=== PATIENT | female | born 1970 | race African-American/Black ===

== ENCOUNTER 2017-08-02 21:09 | Emergency (ER) | payer SELFPAY | END 2017-08-02 22:05 | disposition left against medical advice (07) | LOC: EDBD → ED 21:09 | DX: R55 Syncope and collapse (principal); Z53.21 Procedure and treatment not carried out due to patient leaving prior to being seen by health care provider | CPT/HCPCS: 93005; 93010 ==

== ENCOUNTER 2018-06-02 15:24 | Emergency (ER) | payer MEDICAID ==
[2018-06-02 15:44] VITALS: BP 122/81
[2018-06-02] MEDS ORDERED: NACL 0.9% 1000 ML 1,000 ML IV ONE (16:36)
[2018-06-02] MEDS ORDERED: CLEOCIN 900 MG/50 mL 900 MG/50 ML BAG IV ONE (16:36)
--- NOTE | 2018-06-02 16:37 | Emergency Department Report ---
- General Chief complaint: Skin/Abscess/Foreign Body Stated complaint: BODY PAIN Time Seen by Provider: 06/02/18 16:36 Source: patient, family Mode of arrival: Ambulatory Limitations: Language Barrier - History of Present Illness Initial comments: This is a 48-year-old female nontoxic, well nourished in appearance, no acute signs of distress presents to the ED with c/o of periumbilical redness, tenderness and drainage 4 days. - Related Data Allergies Allergy/AdvReac Type Severity Reaction Status Date / Time No Known Allergies Allergy Unverified 06/02/18 15:43 Abscess Boil HPI - HPI Chief Complaint: Skin/Abscess/Foreign Body Stated Complaint: BODY PAIN Time Seen by Provider: 06/02/18 16:36 Allergies/Adverse Reactions: Allergies Allergy/AdvReac Type Severity Reaction Status Date / Time No Known Allergies Allergy Unverified 06/02/18 15:43 ED Review of Systems ROS: Stated complaint: BODY PAIN Other details as noted in HPI ED Past Medical Hx - Past Medical History Previous Medical History?: No - Surgical History Past Surgical History?: No - Social History Smoking Status: Never Smoker Substance Use Type: None ED Physical Exam - General Limitations: Language Barrier ED Course Vital Signs 06/02/18 15:43 Temperature 98.1 F Pulse Rate 67 Respiratory 16 Rate Blood Pressure 122/81 O2 Sat by Pulse 97 Oximetry ED Medical Decision Making - Lab Data Result diagrams: 06/02/18 16:42 06/02/18 16:42 Critical care attestation.: If time is entered above; I have spent that time in minutes in the direct care of this critically ill patient, excluding procedure time. ED Disposition Condition: Stable Referrals: JANNETTE CAR MD [Primary Care Provider] - 3-5 Days
[2018-06-02 17:15] LABS: BUN/Creatinine Ratio 22; Blood Urea Nitrogen 11 mg/dL (7-17); Calcium 9.3 mg/dL (8.4-10.2); Hemolysis Index 2
[2018-06-02 17:17] LABS: Basophils % (Auto) 0.6 % (0.0-1.8); Eosinophils # (Auto) 0.2 K/mm3 (0.0-0.4); Eosinophils % (Auto) 4.3 % (0.0-4.3); Hematocrit 40.2 % (30.3-42.9); Lymphocytes # (Auto) 2.6 K/mm3 (1.2-5.4); Lymphocytes % (Auto) 47.8 % (13.4-35.0); Mean Corpuscular HGB Conc 35 % (30-34); Mean Corpuscular Hemoglobin 32 pg (28-32); Mean Corpuscular Volume 92 fl (79-97); Monocytes # (Auto) 0.4 K/mm3 (0.0-0.8); Monocytes % (Auto) 7.7 % (0.0-7.3); Platelet Count 252 K/mm3 (140-440); Red Blood Count 4.37 M/mm3 (3.65-5.03); Red Cell Distribution Width 12.4 % (13.2-15.2)
[2018-06-02 18:23] LABS: HCG Qualitative,Urine Negative (Negative)
--- NOTE | 2018-06-02 19:14 | Cat Scan Report ---
FINAL REPORT EXAM: CT ABDOMEN W CON HISTORY: periumbilical redness with tenderness r/o abscess TECHNIQUE: Standard enhanced CT of the abdomen. Coronal and sagittal reconstruction was also performed. Delayed imaging through the abdomen pelvis was also obtained. Contrast: 100 mL Omnipaque 300 given IV. PRIORS: None. FINDINGS: In the periumbilical region, there is no evidence for focal fluid collection to suggest abscess. Minimal skin thickening suggesting swelling is present at the level of the umbilicus. In the proximal small bowel along midline, there is a 1.7 cm well-defined rounded intraluminal calcified density (coronal image 46, axial image 63, series 2). Findings probably represent in undigested pills such as TUMS Within the abdomen, the liver, spleen, pancreas, gallbladder, adrenal glands, and kidneys are unremarkable. No evidence for retroperitoneal lymphadenopathy is seen. The bowel loops have normal caliber. No soft tissue mass, fluid collection, inflammatory change, or free air is seen within the abdomen. The appendix is normal. Images through the upper abdomen include the lung bases which are expanded and clear. There a moderate pericardial effusion. Bony structures show no focal abnormalities and are intact. IMPRESSION: 1. no acute intra-abdominal process noted. Minimal soft tissue skin thickening in the region of the umbilicus. No well-defined abscess is seen 2. Moderate pericardial effusion
--- NOTE | 2018-06-02 19:44 | Emergency Department Report ---
ED General Adult HPI - General Chief complaint: Skin/Abscess/Foreign Body Stated complaint: BODY PAIN Time Seen by Provider: 06/02/18 16:36 Source: patient, family Mode of arrival: Ambulatory Limitations: Language Barrier - History of Present Illness Initial comments: This is a 48-year-old female nontoxic, well nourished in appearance, no acute signs of distress presents to the ED with c/o of periumbilical redness, tenderness and drainage 4 days. Patient describes drainage as clear with no foul order. Patient denies any nausea, vomiting, chest pain, shortness of breath, fever, chills, nausea, vomiting, headache, stiff neck, numbness or tingling. Patient denies any drug allergies or significant past medical history. Patients son is present for translation during interview and physical exam. -: days(s) (4) Radiation: non-radiation Severity scale (0 -10): 8 Quality: aching Consistency: constant Improves with: none Worsens with: none Associated Symptoms: denies other symptoms. denies: confusion, chest pain, cough, diaphoresis, fever/chills, headaches, loss of appetite, malaise, nausea/ vomiting, rash, seizure, shortness of breath, syncope, weakness Treatments Prior to Arrival: none - Related Data Previous Rx's Medication Instructions Recorded Last Taken Type Acetaminophen/Codeine [Tylenol 1 tab PO Q6H PRN #12 tab 06/02/18 Unknown Rx /Codeine # 3 tab] Clindamycin [Clindamycin CAP] 300 mg PO Q8H #21 cap 06/02/18 Unknown Rx Allergies Allergy/AdvReac Type Severity Reaction Status Date / Time No Known Allergies Allergy Unverified 06/02/18 15:43 ED Review of Systems ROS: Stated complaint: BODY PAIN Other details as noted in HPI Constitutional: denies: chills, fever Eyes: denies: eye pain, eye discharge, vision change ENT: denies: ear pain, throat pain Respiratory: denies: cough, shortness of breath, wheezing Cardiovascular: denies: chest pain, palpitations Endocrine: no symptoms reported Gastrointestinal: denies: abdominal pain, nausea, diarrhea Genitourinary: denies: urgency, dysuria, discharge Musculoskeletal: denies: back pain, joint swelling, arthralgia Skin: denies: rash, lesions Neurological: denies: headache, weakness, paresthesias Psychiatric: denies: anxiety, depression Hematological/Lymphatic: denies: easy bleeding, easy bruising ED Past Medical Hx - Past Medical History Previous Medical History?: No - Surgical History Past Surgical History?: No - Social History Smoking Status: Never Smoker Substance Use Type: None - Medications Home Medications: Home Medications Medication Instructions Recorded Confirmed Last Taken Type Acetaminophen/Codeine [Tylenol 1 tab PO Q6H PRN #12 tab 06/02/18 Unknown Rx /Codeine # 3 tab] Clindamycin [Clindamycin CAP] 300 mg PO Q8H #21 cap 06/02/18 Unknown Rx ED Physical Exam - General Limitations: Language Barrier General appearance: alert, in no apparent distress - Head Head exam: Present: atraumatic, normocephalic - Eye Eye exam: Present: normal appearance Pupils: Present: normal accommodation - ENT ENT exam: Present: normal exam, mucous membranes moist - Neck Neck exam: Present: normal inspection, full ROM. Absent: tenderness, meningismus, lymphadenopathy - Respiratory Respiratory exam: Present: normal lung sounds bilaterally. Absent: respiratory distress, wheezes, rales, rhonchi, stridor, chest wall tenderness, accessory muscle use, decreased breath sounds, prolonged expiratory - Cardiovascular Cardiovascular Exam: Present: regular rate, normal rhythm, normal heart sounds. Absent: bradycardia, tachycardia, irregular rhythm, systolic murmur, diastolic murmur, rubs, gallop - GI/Abdominal GI/Abdominal exam: Present: soft, tenderness, normal bowel sounds, other (circum -periumbilical erythema with no induration or flutance noted. No draiange noted. ). Absent: distended, guarding, rebound, rigid, diminished bowel sounds - Rectal Rectal exam: Present: deferred - Extremities Exam Extremities exam: Present: normal inspection, full ROM, normal capillary refill. Absent: tenderness - Back Exam Back exam: Present: normal inspection, full ROM. Absent: tenderness, CVA tenderness (R), CVA tenderness (L), muscle spasm, paraspinal tenderness, vertebral tenderness, rash noted - Neurological Exam Neurological exam: Present: alert, oriented X3, normal gait - Psychiatric Psychiatric exam: Present: normal affect, normal mood - Skin Skin exam: Present: warm, dry, intact, normal color. Absent: rash ED Course Vital Signs 06/02/18 15:43 Temperature 98.1 F Pulse Rate 67 Respiratory 16 Rate Blood Pressure 122/81 O2 Sat by Pulse 97 Oximetry - Reevaluation(s) Reevaluation #1: 06/02/18 19:46 Patient is speaking in full sentences with no signs of distress noted. - Consultations Consultation #1: 06/02/18 19:46 Patient has been consulted with Megan Ch about patient history, physical exam , and labs,CT abdomen results and agrees to the ED plan of care with CT with contrast of chest and further labs and consult branch library clerk. ED Medical Decision Making - Lab Data Result diagrams: 06/02/18 16:42 06/02/18 16:42 - Medical Decision Making This is a 48-year-old female that presents with periumbilical cellulitis. Patient is stable and was examined by me. Labs obtained and unremarkable. CT of abdomen indicates moderate pericardial effusion. Patient has been discussed with Dr. Salinas and agrees to the ED plan of care. CT of chest obtained with small pericardial effusion with left lower lobe atelectasis. Patient was discussed with branch library clerk Renzo Vilchis and stated patient can be discharged with follow-up for a echocardiogram. Patient received 1 L normal saline as well as clindamycin. I will discharge patient with clindamycin, Tylenol with codeine. Patient was instructed to Do not operate any machinery while taking Tylenol with codeine as this may cause drowsiness. Patient was referred to Follow-up with a primary care/branch library clerk doctor in 2-3 days or if symptoms worsen and continue return to emergency room as soon as possible. At time of discharge, the patient does not seem toxic or ill in appearance. No acute signs of distress noted. Patient agrees to discharge treatment plan of care. No further questions noted by the patient. Critical care attestation.: If time is entered above; I have spent that time in minutes in the direct care of this critically ill patient, excluding procedure time. ED Disposition Clinical Impression: Cellulitis of periumbilical region, Pericardial effusion Disposition: TO HOME OR SELFCARE Is pt being admited?: No Does the pt Need Aspirin: No Condition: Stable Instructions: Cellulitis (ED), Acetaminophen/Codeine (By mouth) Additional Instructions: Follow-up with a primary care/branch library clerk doctor in 2-3 days or if symptoms worsen and continue return to emergency room as soon as possible. Do not operate any machinery while taking Tylenol with codeine as this may cause drowsiness. Prescriptions: Acetaminophen/Codeine [Tylenol /Codeine # 3 tab] 1 tab PO Q6H PRN #12 tab PRN Reason: Pain , Severe (7-10) Clindamycin [Clindamycin CAP] 300 mg PO Q8H #21 cap Referrals: JANNETTE CAR MD [Primary Care Provider] - 3-5 Days JEREMY DAS MD [Referring] - 3-5 Days JS ROD MD [Staff Physician] - 3-5 Days [facility] [Outside] - 3-5 Days [facility] [Outside] - 3-5 Days Forms: Work/School Release Form(ED)
[2018-06-02 20:13] LABS: INR 0.89 (0.87-1.13)
[2018-06-02 20:14] LABS: Partial Thromboplastin Time 34.3 Sec. (24.2-36.6)
[2018-06-02 20:23] LABS: Creatine Kinase MB 1.3 ng/mL (0.0-4.0)
--- NOTE | 2018-06-02 21:36 | Cat Scan Report ---
FINAL REPORT EXAM: CT CHEST W CON HISTORY: pericardial effusion TECHNIQUE: Standard enhanced CT of the chest at 2.5 mm axial increments. Coronal and sagittal reconstruction was also obtained. Contrast: 100 ml Omnipaque 300 given IV PRIORS: None. FINDINGS: Linear atelectasis in the right middle lobe is seen. Otherwise, the lung parenchyma are expanded and clear with no evidence for parenchymal nodules, consolidation, vascular congestion, pleural effusion, or pneumothorax. There is no evidence for mediastinal, hilar, or axillary adenopathy. The esophagus is collapsed. The trachea is midline. There a small pericardial effusion. Cardiac size and aorta are normal. Images through the lung bases include upper abdomen which show no abnormality of the visualized abdominal viscera. Bony structures show no focal abnormalities. No evidence for bony fracture is seen. IMPRESSION: Small pericardial effusion. Right middle lobe linear atelectasis
== END 2018-06-02 22:40 | disposition home or self-care (01) ==
LOC: ED 15:24
DX: L03.315 Cellulitis of perineum (principal); I31.3 Pericardial effusion (noninflammatory)
CPT/HCPCS: 36415; 71260; 74160; 80048; 81025; 82550; 82553; 84484; 85025; 85610; 85730; 86140; 93005; 93010; 96365; 99284; J7030; Q9967

== ENCOUNTER 2018-06-03 18:04 | Emergency (ER) | payer MEDICAID ==
[2018-06-03 19:33] VITALS: BP 125/81
[2018-06-03] MEDS ORDERED: BENADRYL PO ONE (19:42)
--- NOTE | 2018-06-03 21:03 | Emergency Department Report ---
ED Rash HPI - HPI Chief Complaint: Skin Rash Stated Complaint: RASH,STOMACH PAIN Time Seen by Provider: 06/03/18 20:51 Rash Symptoms: Yes Itching Other History: 48-year-old [place]ian he now comes in for generalized rash that started about 2 PM today. Patient reports that she was seen here yesterday and was placed on clindamycin and Tylenol No. 3 for cellulitis of the umbilicus. Patient reports that she has belly pain and was having discharge from her umbilicus that was clear and fluid it was 2 days ago and then abdominal pain started. Patient denies any fever or chills or nausea no vomiting. Yesterday patient had a full workup with CT scan that showed a pleural effusion. Patient was instructed to follow up with mammography supervisor. ED Review of Systems ROS: Stated complaint: RASH,STOMACH PAIN Other details as noted in HPI Comment: All other systems reviewed and negative Skin: rash, pruritus ED Past Medical Hx - Past Medical History Previous Medical History?: No - Surgical History Past Surgical History?: Yes Additional Surgical History: abd - Social History Smoking Status: Never Smoker Substance Use Type: None - Medications Home Medications: Home Medications Medication Instructions Recorded Confirmed Last Taken Type Acetaminophen/Codeine [Tylenol 1 tab PO Q6H PRN #12 tab 06/02/18 Unknown Rx /Codeine # 3 tab] Clindamycin [Clindamycin CAP] 300 mg PO Q8H #21 cap 06/02/18 Unknown Rx predniSONE [Deltasone] 10 mg PO QDAY #3 tab 06/03/18 Unknown Rx traMADol [Ultram 50 MG tab] 50 mg PO Q6HR #12 tablet 06/03/18 Unknown Rx Rash Exam - Exam General: Vital signs noted. No distress. Alert and acting appropriately. HEENT: No Periorbital Edema, No Conjuctival Injection, No Chemosis, No Perioral Edema, No Tongue Edema, No Uvular Edema, No Compromised Airway, No Drooling Lungs: Yes Good Air Exchange, No Wheezes, No Ronchi, No Stridor, No Cough, No Labored Respirations, No Retractions, No Use of Accessory Muscles, No Other Abnormal Lung Sounds Heart: Yes Regular, No Murmur Skin: Yes Maculopapular Rash Other: Positive: Neurologic Normal, Musculoskeletal Normal. Negative: Abdomen Normal (bret-Umbilicus erythematous maculopapular rash) ED Course Vital Signs 06/03/18 19:32 Temperature 98.1 F Pulse Rate 77 Respiratory 16 Rate Blood Pressure 125/81 O2 Sat by Pulse 97 Oximetry ED Medical Decision Making - Medical Decision Making Patient has been evaluated by this provider faster. Discussed case with Dr. Cardona refilled at its Tylenol with codeine given her reaction. Dexamethasone 8 mg IM ordered. Informed patient to discontinue the Tylenol with Codeine Informed patient to continue with the clindamycin and we'll give her tramadol for pain management. Patient is to keep her referrals to cardiology and primary care. Patient verbalized understanding Critical care attestation.: If time is entered above; I have spent that time in minutes in the direct care of this critically ill patient, excluding procedure time. ED Disposition Clinical Impression: Allergic reaction caused by a drug Qualifiers: Encounter type: initial encounter Qualified Code(s): T78.40XA - Allergy, unspecified, initial encounter Disposition: DC-01 TO HOME OR SELFCARE Is pt being admited?: No Does the pt Need Aspirin: No Condition: Stable Instructions: Acute Rash (ED) Additional Instructions: Complete antibiotics as prescribed. Keep your appointments to cardiology and primary care. Discontinue using Tylenol with Codeine. Take tramadol for pain. Take steroids as prescribed. Prescriptions: predniSONE [Deltasone] 10 mg PO QDAY #3 tab traMADol [Ultram 50 MG tab] 50 mg PO Q6HR #12 tablet Forms: Work/School Release Form(ED), Accompanied Note
[2018-06-03] MEDS ORDERED: ULTRAM PO ONE (21:08)
[2018-06-03] MEDS ORDERED: DECADRON IM ONE (21:08)
== END 2018-06-03 21:34 | disposition home or self-care (01) ==
LOC: ED 18:04
DX: T39.1X5A Adverse effect of 4-Aminophenol derivatives, initial encounter (principal); Y92.89 Other specified places as the place of occurrence of the external cause
CPT/HCPCS: 96372; 99282; J1100

== ENCOUNTER 2020-02-29 17:08 | Emergency (ER) | payer MEDICARE, MEDICAID ==
[2020-02-29 19:52] LABS: Basophils # (Auto) 0.1 K/mm3 (0.0-0.1); Eosinophils # (Auto) 0.3 K/mm3 (0.0-0.4); Eosinophils % (Auto) 4.9 % (0.0-4.3); Hematocrit 41.1 % (30.3-42.9); Hemoglobin 13.9 gm/dl (10.1-14.3); Lymphocytes # (Auto) 2.7 K/mm3 (1.2-5.4); Lymphocytes % (Auto) 47.6 % (13.4-35.0); Mean Corpuscular HGB Conc 34 % (30-34); Mean Corpuscular Volume 94 fl (79-97); Monocytes # (Auto) 0.4 K/mm3 (0.0-0.8); Monocytes % (Auto) 7.9 % (0.0-7.3); Platelet Count 240 K/mm3 (140-440); Red Blood Count 4.37 M/mm3 (3.65-5.03); Red Cell Distribution Width 12.6 % (13.2-15.2)
[2020-02-29 20:22] LABS: Alanine Aminotransferase 15 units/L (7-56); Albumin 4.4 g/dL (3.9-5); BUN/Creatinine Ratio 16; Blood Urea Nitrogen 13 mg/dL (7-17); Calcium 9.4 mg/dL (8.4-10.2); Hemolysis Index 10
[2020-02-29 20:44] LABS: Bacteria,Urine 1+ /HPF (Negative); Bilirubin,Urine NEG (Negative); Blood,Urine NEG (Negative); Color,Urine Yellow (Yellow); Mucus,Urine 1+ /HPF; Protein,Urine <15 mg/dL mg/dL (Negative); Urobilinogen,Urine < 2.0 mg/dL (<2.0)
[2020-02-29] MEDS ORDERED: LIDOCAINE-MPF (1%) 10 MG/1 ML VIAL 5 ML INFILTRATI ONE (22:21)
[2020-02-29] MEDS ORDERED: FAMOTIDINE 20 MG TAB PO ONE (22:21)
[2020-02-29] MEDS ORDERED: ONDANSETRON 4 MG ODT TAB PO ONE (22:21)
[2020-02-29] MEDS ORDERED: DICYCLOMINE 20 MG TAB PO ONE (22:21)
--- NOTE | 2020-02-29 22:59 | Emergency Department Report ---
ED Abdominal Pain HPI - General Chief Complaint: Abdominal Pain Stated Complaint: BODY PAIN Source: patient Mode of arrival: Ambulatory Limitations: Language Barrier - History of Present Illness Initial Comments: Patient is a 49-year-old Citizen [place] female with a history of GERD, anxiety and depression who presents to the ED with complaint of acute onset persistent itchy painful erythematous maculopapular rash on left flank that radiates to the left mid posterior thoracic area with epigastric pain, nausea and vomiting for the last 5 days. Patient states that the redness and the pain on the left flank is worsened in the last 2 days. Patient states that she has not been able to keep anything down because of persistent nausea and vomiting with dysuria, urinary frequency and urgency and epigastric pain. Patient denies dizziness, syncope, fever, chills, diarrhea, vaginal bleeding, vaginal discharge, low back pain, chest pain or shortness of breath, sore throat, headache, palpitations, cough or hematochezia. MD Complaint: abdominal pain (epigastric), flank pain (left ), other (nausea and vomiting; left flank erythematous painful rashes) -: Sudden (5) Location: epigastric, L flank Radiation: epigastric, R flank Migration to: no migration Severity: moderate Severity scale (0 -10): 5 Quality: aching, sharp, burning Consistency: constant Improves With: nothing Worsens With: nothing Associated Symptoms: denies other symptoms, nausea, vomiting, other (erythemato us itchy painful left flank rashes). denies: diarrhea, fever, chills, constipation, dysuria, hematemesis, hematochezia, melena, anorexia, syncope - Related Data Previous Rx's Medication Instructions Recorded Last Taken Type Acetaminophen/Codeine [Tylenol 1 tab PO Q6H PRN #12 tab 06/02/18 Unknown Rx /Codeine # 3 tab] Clindamycin [Clindamycin CAP] 300 mg PO Q8H #21 cap 06/02/18 Unknown Rx predniSONE [Deltasone] 10 mg PO QDAY #3 tab 06/03/18 Unknown Rx Acyclovir 400 mg PO Q8H #30 tablet 02/29/20 Unknown Rx Famotidine [Pepcid] 20 mg PO BID #30 tablet 02/29/20 Unknown Rx Ibuprofen [Motrin] 600 mg PO Q8H PRN #24 tablet 02/29/20 Unknown Rx Ondansetron [Zofran Odt] 4 mg PO Q6HR PRN #20 tab.rapdis 02/29/20 Unknown Rx cephALEXin [Keflex] 500 mg PO Q8HR #30 cap 02/29/20 Unknown Rx traMADoL [Ultram 50 MG tab] 50 mg PO Q6HR PRN #12 tablet 02/29/20 Unknown Rx Allergies Allergy/AdvReac Type Severity Reaction Status Date / Time No Known Allergies Allergy Verified 02/29/20 17:30 ED Review of Systems ROS: Stated complaint: BODY PAIN Other details as noted in HPI Constitutional: denies: chills, fever Eyes: denies: eye pain, eye discharge, vision change ENT: denies: ear pain, throat pain Respiratory: denies: cough, shortness of breath, wheezing Cardiovascular: denies: chest pain, palpitations Endocrine: no symptoms reported Gastrointestinal: abdominal pain (Epigastric), nausea, vomiting, other (Left flank pain). denies: diarrhea Genitourinary: other (Left flank pain). denies: urgency, dysuria, discharge Musculoskeletal: arthralgia, myalgia. denies: back pain, joint swelling Skin: rash (Erythematous maculopapular itchy painful rash on the left flank), change in color, pruritus. denies: lesions Neurological: denies: headache, weakness, paresthesias Psychiatric: denies: anxiety, depression Hematological/Lymphatic: denies: easy bleeding, easy bruising ED Past Medical Hx - Past Medical History Previous Medical History?: Yes Hx GERD: Yes Hx Psychiatric Treatment: Yes (Anxiety and depression) - Surgical History Additional Surgical History: abd - Social History Smoking Status: Never Smoker Substance Use Type: None - Medications Home Medications: Home Medications Medication Instructions Recorded Confirmed Last Taken Type Acetaminophen/Codeine [Tylenol 1 tab PO Q6H PRN #12 tab 06/02/18 Unknown Rx /Codeine # 3 tab] Clindamycin [Clindamycin CAP] 300 mg PO Q8H #21 cap 06/02/18 Unknown Rx predniSONE [Deltasone] 10 mg PO QDAY #3 tab 06/03/18 Unknown Rx Acyclovir 400 mg PO Q8H #30 tablet 02/29/20 Unknown Rx Famotidine [Pepcid] 20 mg PO BID #30 tablet 02/29/20 Unknown Rx Ibuprofen [Motrin] 600 mg PO Q8H PRN #24 tablet 02/29/20 Unknown Rx Ondansetron [Zofran Odt] 4 mg PO Q6HR PRN #20 tab.rapdis 02/29/20 Unknown Rx cephALEXin [Keflex] 500 mg PO Q8HR #30 cap 02/29/20 Unknown Rx traMADoL [Ultram 50 MG tab] 50 mg PO Q6HR PRN #12 tablet 02/29/20 Unknown Rx ED Physical Exam - General Limitations: Language Barrier General appearance: alert, in no apparent distress - Head Head exam: Present: atraumatic, normocephalic, normal inspection - Eye Eye exam: Present: normal appearance, PERRL, EOMI Pupils: Present: normal accommodation - ENT ENT exam: Present: normal exam, normal orophraynx, mucous membranes moist, TM's normal bilaterally, normal external ear exam - Neck Neck exam: Present: normal inspection, full ROM. Absent: tenderness, lymphadenopathy - Respiratory Respiratory exam: Present: normal lung sounds bilaterally. Absent: respiratory distress, wheezes, rales, rhonchi, chest wall tenderness, accessory muscle use, prolonged expiratory - Cardiovascular Cardiovascular Exam: Present: regular rate, normal rhythm, normal heart sounds. Absent: systolic murmur, diastolic murmur, rubs, gallop - GI/Abdominal GI/Abdominal exam: Present: soft, tenderness (Mildly tender left flank due to erythematous maculopapular blistered dermatomal rashes), normal bowel sounds. Absent: guarding, rebound - Extremities Exam Extremities exam: Present: normal inspection, full ROM, normal capillary refill - Back Exam Back exam: Present: normal inspection, full ROM. Absent: tenderness, CVA tenderness (R), muscle spasm, vertebral tenderness - Neurological Exam Neurological exam: Present: alert, oriented X3, CN II-XII intact, normal gait, reflexes normal - Psychiatric Psychiatric exam: Present: normal affect, normal mood - Skin Skin exam: Present: warm, dry, intact, rash (Erythematous maculopapular blistered dermatomal rash on left flank), erythema, vesicles ED Course Vital Signs 02/29/20 17:34 Temperature 98.3 F Pulse Rate 75 Respiratory 20 Rate Blood Pressure 117/76 O2 Sat by Pulse 96 Oximetry ED Medical Decision Making - Lab Data Result diagrams: 02/29/20 19:15 02/29/20 19:15 - Medical Decision Making This is a 49-year-old Citizen [place] female with a history of GERD, anxiety and depression who presents to the ED with complaint of acute onset persistent itchy painful erythematous maculopapular rash on left flank that radiates to the left mid posterior thoracic area with epigastric pain, nausea and vomiting for the last 5 days. Patient states that the redness and the pain on the left flank is worsened in the last 2 days. Patient states that she has not been able to keep anything down because of persistent nausea and vomiting with dysuria, urinary frequency and urgency and epigastric pain. In the ED, patient is alert and o riented x3 and is not in distress. Lab test results were reviewed and are all nonactionable except for urinalysis that showed significant urinary tract infection. Patient was treated for nausea and vomiting in the ED, also given antacids and antibiotics for UTI in the ED. Patient was discharged home on antibiotics for UTI, antivirals for suspected shingles outbreak, antiemetics and antacids. Patient was advised to return to the ED immediately if symptoms get worse, otherwise follow-up with her primary care physician in 7 to 10 days for reevaluation. - Differential Diagnosis UTI; Kidney stones; Shingles; GERD; Dehydration; Gastritis Critical care attestation.: If time is entered above; I have spent that time in minutes in the direct care of this critically ill patient, excluding procedure time. ED Disposition Clinical Impression: Acute urinary tract infection, Acute abdominal pain in right flank, Nausea and vomiting in adult Shingles outbreak Qualifiers: Herpes zoster complications: without complications Qualified Code(s): B02.9 - Zoster without complications GERD (gastroesophageal reflux disease) Qualifiers: Esophagitis presence: without esophagitis Qualified Code(s): K21.9 - Gastro- esophageal reflux disease without esophagitis Disposition: - TO HOME OR SELFCARE Is pt being admited?: No Does the pt Need Aspirin: No Condition: Stable Instructions: Flank Pain (ED), Acute Nausea and Vomiting (ED), Herpes Zoster (ED), Gastroesophageal Reflux Disease (ED), Urinary Tract Infection in Women (ED) Additional Instructions: Take medication with food, drink plenty of fluids and follow-up with your primary care physician in 5 to 7 days for reevaluation. Return to the ED imm ediately if symptoms get worse. Prescriptions: Acyclovir 400 mg PO Q8H #30 tablet cephALEXin [Keflex] 500 mg PO Q8HR #30 cap Ibuprofen [Motrin] 600 mg PO Q8H PRN #24 tablet PRN Reason: Pain Famotidine [Pepcid] 20 mg PO BID #30 tablet traMADoL [Ultram 50 MG tab] 50 mg PO Q6HR PRN #12 tablet PRN Reason: Pain , Severe (7-10) Ondansetron [Zofran Odt] 4 mg PO Q6HR PRN #20 tab.rapdis PRN Reason: Nausea Referrals: [facility] [place] [Outside] - 7-10 days [facility] [Provider Group] - 7-10 days Time of Disposition: 23:06 Print Language: [id number]
[2020-02-29 23:42] VITALS: BP 118/66
== END 2020-02-29 23:45 | disposition home or self-care (01) ==
LOC: ED 17:08
DX: N39.0 Urinary tract infection, site not specified (principal); K21.9 Gastro-esophageal reflux disease without esophagitis; B02.9 Zoster without complications; R10.13 Epigastric pain; R11.2 Nausea with vomiting, unspecified; F32.9 Major depressive disorder, single episode, unspecified; F41.9 Anxiety disorder, unspecified; Z79.1 Long term (current) use of non-steroidal anti-inflammatories (NSAID); Z79.2 Long term (current) use of antibiotics; Z79.899 Other long term (current) drug therapy
CPT/HCPCS: 36415; 80053; 81001; 83690; 85025; 87086; 96372; 99283; J0696; Q0162